=== PATIENT | male | born 1990 | race Caucasian/White ===

== ENCOUNTER 2020-07-13 00:20 | Emergency (ER) | payer MEDICAID, SELFPAY ==
[~2020-07-13] VITALS: Ht 177.8 cm; Wt 86.0 kg
[2020-07-13 00:26] VITALS: BP 149/82
--- NOTE | 2020-07-13 00:37 | NUR ---
THIS IS A 29 YO M BIB EMS FROM [facility] FOR ETOH. PER EMS PT HAD GLF TODAY AND HAD CHRISTINA (IN HEAD) PLACED BY TSERING. CURRENTLY MINIMAL BLEEDING FROM STAPLE SITE. LARGE ABRASION TO RT THIGH. ABRASION TO LT ARM. UNKNOWN IF GLF SINCE VISIT TO TSERING. PT INTERMITTENTLY TREMULOUS IN LEGS. PT EASILY AROUSED BY VERBAL STIMULI. TACHYCARDIC, OTHER VS WDL. PT CONNECTED TO ALL MONITORING. SIDE RAILS UPX2. CALL LIGHT IN REACH. PT PROVIDED W/ WATER, SPRITE AND WARM BLANKETS FOR COMFORT. PT TO CT.
--- NOTE | 2020-07-13 00:53 | NUR ---
PT BACK FROM CT.
--- NOTE | 2020-07-13 01:56 | NUR ---
PT SLEEPING. RR EVEN NON LABORED. WILL CTM.
== END 2020-07-13 04:25 | disposition home or self-care (01) ==
LOC: ED 04:22
DX: S00.211A Abrasion of right eyelid and periocular area, initial encounter (principal); S09.8XXA Other specified injuries of head, initial encounter; F10.229 Alcohol dependence with intoxication, unspecified; F17.210 Nicotine dependence, cigarettes, uncomplicated; Z72.9 Problem related to lifestyle, unspecified; W18.30XA Fall on same level, unspecified, initial encounter; Y93.89 Activity, other specified; Y92.89 Other specified places as the place of occurrence of the external cause; Y99.8 Other external cause status
CPT/HCPCS: 70450; 99284

== ENCOUNTER 2020-10-22 12:34 | Emergency (ER) | payer MEDICAID ==
[~2020-10-22] VITALS: Ht 180.3 cm; Wt 90.0 kg
[2020-10-22 12:39] VITALS: BP 157/99
--- NOTE | 2020-10-22 12:40 | NUR ---
PT BIB EMS FOR ETOH. PT WAS FOUND DOWN IN SOME BUSHES IN A NEIGHBORHOOD. PT UNCOOPERATIVE. REFUSED TEMP. PT RESTING IN GURNEY. SIDE RAILS UP. CONNECTED TO MONITORS
--- NOTE | 2020-10-22 13:26 | NUR ---
PT AMBULATED OUT OF AMBULANCE BAY WITH STEAD GAIT. PT EDUCATED ON IMPORTANCE OF STAYING. EDMD AND EMPLOYEE PLACEMENT SPECIALIST AWARE.
== END 2020-10-22 13:28 | disposition left against medical advice (07) ==
LOC: ED 12:55
DX: F10.220 Alcohol dependence with intoxication, uncomplicated (principal); Y90.0 Blood alcohol level of less than 20 mg/100 ml
CPT/HCPCS: 99283